=== PATIENT | female | born 1990 | race Caucasian/White ===

== ENCOUNTER 2024-02-27 00:35 | Emergency (ER) | payer OTHER ==
[~2024-02-27] VITALS: Ht 154.9 cm; Wt 52.7 kg
[2024-02-27 00:48] VITALS: TEMP 98.1
--- NOTE | 2024-02-27 00:57 | NUR ---
Patient to CT scan at this time
--- NOTE | 2024-02-27 01:02 | NUR ---
PAGED TELENEURO FOR CONSULT
--- NOTE | 2024-02-27 01:25 | NUR ---
CALLED PHARMACY FOR VERIFICATION OF DILAUDED PENDING VERIFICATION
[2024-02-27] MEDS: morphine 4 MG/ML inj SYRINge IV ONE (01:30)
[2024-02-27] MEDS: HYDROmorphone 1 mg/ml syringe IV ONE (01:37)
[2024-02-27] MEDS ORDERED: LEVE10006 PO (02:36)
[2024-02-27] MEDS ORDERED: NAPR-56 PO (02:37)
[2024-02-27 03:04] VITALS: BP 111/67; PULSE 70; RESP 18; O2SAT 98
== END 2024-02-27 03:06 | disposition home or self-care (01) ==
LOC: ER 00:35
DX: S00.531A Contusion of lip, initial encounter (principal); G40.909 Epilepsy, unspecified, not intractable, without status epilepticus; M25.512 Pain in left shoulder; R51.9 Headache, unspecified; Z88.0 Allergy status to penicillin; Z88.5 Allergy status to narcotic agent; F10.239 Alcohol dependence with withdrawal, unspecified; Y90.9 Presence of alcohol in blood, level not specified; X58.XXXA Exposure to other specified factors, initial encounter; Y93.89 Activity, other specified; Y92.89 Other specified places as the place of occurrence of the external cause; Y99.8 Other external cause status
CPT/HCPCS: 70450; 70486; 73000; 96374; 99285; J1170